=== PATIENT | male | born 1960 | race Caucasian/White ===

== ENCOUNTER → 2017-01-31 | Outpatient (CLI) | payer OTHER ==
[~2017-01-31] MED LIST: AMIT25TA PO; ASPI-496 PO; CHOL20002 PO; FOLI0.4T2 PO; FURO-92 PO; FURO-93 PO; FURO40TA6 PO; LACT10SO28 PO; LACT10SO5 PO; MAGN64TA9 PO; MILK500C PO; MINO75CA PO; MORP15TA3 PO; ONDA4TAB10 PO; OXYC5TAB3 PO; POTA20TA6 PO; PROP20TA PO; RIFA550T PO; TAMS-11 PO; VITA400C40 PO; VITA400C42 PO; ZINC220C5 PO; ZINC220T PO
== END | disposition home or self-care (01) ==
LOC: CFH 08:17
PROVIDERS: ATTEND Family Medicine
DX: Z13.820 Encounter for screening for osteoporosis (principal); M81.0 Age-related osteoporosis without current pathological fracture
CPT/HCPCS: 77080

== ENCOUNTER 2017-02-21 06:10 | Day surgery (SDC) | payer OTHER ==
[~2017-02-21] VITALS: Ht 182.9 cm; Wt 78.0 kg
[2017-02-21] MEDS ORDERED: POTA10TA11 PO (07:14)
[2017-02-21] MEDS ORDERED: LACT10SO28 PO (07:14)
[2017-02-21] MEDS ORDERED: AMIT10TA PO (07:14)
[2017-02-21] MEDS ORDERED: TAMS-11 PO (07:14)
[2017-02-21 07:15] VITALS: BP 132/87
[2017-02-21] MEDS ORDERED: OXYCODONE PO (07:34)
[2017-02-21] MEDS ORDERED: ONDA4TAB10 PO (07:37)
[2017-02-21] MEDS ORDERED: RISE35TA3 PO (07:37)
[2017-02-21] MEDS ORDERED: LIDOCAINE 1%, 20ML ONE (09:56)
[2017-02-21] MEDS ORDERED: MIDAZOLAM 1 MG/ML, 5ML ONE (09:57)
[2017-02-21] MEDS ORDERED: NALOXONE 1 MG/ML, 2ML ONE (09:58)
[2017-02-21] MEDS ORDERED: FENTANYL PF 100 MCG/2ML ONE (09:58)
[2017-02-21] MEDS ORDERED: FLUMAZENIL 0.1 MG/1 ML, 5ML ONE (09:58)
[2017-02-21] MEDS ORDERED: VISIPAQUE 270 MG/ML, 50ML BOTTLE ONE (11:10)
== END 2017-02-21 14:40 | disposition home or self-care (01) ==
LOC: OUT 06:10
PROVIDERS: ATTEND Internal Medicine
DX: K74.60 Unspecified cirrhosis of liver (principal); K76.6 Portal hypertension; K75.9 Inflammatory liver disease, unspecified; Z87.891 Personal history of nicotine dependence
CPT/HCPCS: 36011; 36415; 37200; 75970; 76937; 85610; 88307; 88313; C1769; C1894; J2250; J3010; J3490; Q9966; 99156; 99157; J2310

== ENCOUNTER 2018-09-09 22:02 | Emergency (ER) | payer OTHER ==
[~2018-09-09 22:02] MED LIST changes: +AMIT10TA PO; -CHOL20002 PO; +CHOL200052 PO; -MAGN64TA9 PO; +MAGNESIUM DR64 MG PO; +OXYCODONE PO; +POTA10TA11 PO; -RIFA550T PO; +RIFA550T4 PO; +RISE35TA3 PO; -VITA400C40 PO; +VITA400C43 PO
[2018-09-09] MEDS ORDERED: PROMETHAZINE 25 MG/ML, 1ML IM ONE (22:30)
[2018-09-09] MEDS ORDERED: SODIUM CHLORIDE 0.9% 1,000ML IVBOLUS ONE (22:30)
[2018-09-09] MEDS ORDERED: SODIUM CHLORIDE FLUSH 10ML SYR IVF ONE (22:30)
[2018-09-09] MEDS ORDERED: ONDANSETRON 2MG/ML, 2ML IVPush ONE (22:30)
[2018-09-09] MEDS ORDERED: ONDANSETRON 2MG/ML, 2ML ONE (22:33)
[2018-09-09] MEDS ORDERED: MORPHINE SULFATE 4 MG/ML, 1ML ONE ×2 (22:33→23:14)
[2018-09-09] MEDS ORDERED: PROMETHAZINE 25 MG/ML, 1ML ONE (22:33)
[2018-09-09] MEDS: MORPHINE SULFATE 4 MG/ML, 1ML IVPush PRN ×2 (22:39→23:18)
[2018-09-09 22:44] LABS: BASOPHILS # (AUTO) 0.03 x10^3/uL (0-0.1); BASOPHILS % (AUTO) 0 % (0-1); EOSINOPHILS # (AUTO) 0.18 x10^3/uL (0-0.4); EOSINOPHILS % (AUTO) 2 % (1-7); LYMPHOCYTES # (AUTO) 1.53 x10^3/uL (1-3.4); LYMPHOCYTES % (AUTO) 19 % (22-44); MD NO; MEAN CORPUSCULAR HEMOGLOBIN 33.8 pg (27.5-34.5); MEAN CORPUSCULAR HGB CONC 33.9 g/dL (33.2-36.2); MEAN CORPUSCULAR VOLUME 99.8 fL (81-97); MEAN PLATELET VOLUME 9.1 fL (7.4-10.4); MONOCYTES # (AUTO) 0.54 x10^3/uL (0.2-0.8); MONOCYTES % (AUTO) 7 % (2-9); NEUTROPHILS # (AUTO) 5.81 x10^3/uL (1.8-6.8); NEUTROPHILS % (AUTO) 72 % (42-75); PLATELET COUNT 116 x10^3/uL (130-400); RED BLOOD COUNT 3.61 x10^6/uL (4.38-5.82); RED CELL DISTRIBUTION WIDTH 15.9 % (9.4-14.8)
[2018-09-09 22:54] LABS: ALANINE AMINOTRANSFERASE 26 U/L (12-78); ALBUMIN 2.7 g/dL (3.4-5.0); ANION GAP 13 mmol/L (5-15); CALCIUM 9.1 mg/dL (8.5-10.1); CHLORIDE 105 mmol/L (98-107); CREATININE 1.47 mg/dL (0.7-1.3)
[2018-09-09 22:59] LABS: ALKALINE PHOSPHATASE 295 U/L (45-117); BILIRUBIN,TOTAL 1.2 mg/dL (0.2-1.0); TOTAL PROTEIN 8.6 g/dL (6.4-8.2); TROPONIN I < 0.015 ng/mL (0.000-0.045)
[2018-09-10] MEDS ORDERED: DIPHENHYDRAMINE 25 MG CAPSULE PO ONE
[2018-09-10] MEDS ORDERED: HYDROcodone/APAP 5/325 TABLET PO ONE
[2018-09-10] MEDS ORDERED: ZOLPIDEM 10MG TABLET PO PRN
[2018-09-10] MEDS ORDERED: HYDROcodone/APAP 5/325 TABLET ONE (00:11)
[2018-09-10] MEDS ORDERED: DIPHENHYDRAMINE 25 MG CAPSULE ONE (00:11)
[2018-09-10] MEDS ORDERED: ZOLPIDEM 5MG TABLET ONE ×2 (00:11→00:21)
[2018-09-10] MEDS ORDERED: POTASSIUM CHLORIDE 20 MEQ TAB.ER.PRT PO ONE (00:30)
[2018-09-10] MEDS ORDERED: POTASSIUM CHLORIDE 20 MEQ TAB.ER.PRT ONE (00:32)
[2018-09-10 00:38] VITALS: BP 131/74
== END 2018-09-10 00:48 | disposition home or self-care (01) ==
LOC: ED 09-10 00:38
DX: K70.30 Alcoholic cirrhosis of liver without ascites (principal); F51.01 Primary insomnia; R91.8 Other nonspecific abnormal finding of lung field; R93.5 Abnormal findings on diagnostic imaging of other abdominal regions, including retroperitoneum; R11.10 Vomiting, unspecified; I10 Essential (primary) hypertension; Z88.6 Allergy status to analgesic agent; Z88.5 Allergy status to narcotic agent
CPT/HCPCS: 36415; 71045; 74177; 80053; 83690; 84484; 85025; 93005; 96361; 96372; 96374; 96375; 96376; 99285; J2405; J2550; J7030; Q0163

== ENCOUNTER 2019-10-17 13:56 | Outpatient (CLI) | payer MEDICARE, OTHER ==
[~2019-10-17 13:56] MED LIST changes: +LACT10SO24 PO; -LACT10SO5 PO; +MORP-29 PO; -MORP15TA3 PO; +RISE35TA PO; -RISE35TA3 PO; -ZINC220T PO; +ZINC220T3 PO
== END 2019-10-17 23:59 | disposition home or self-care (01) ==
LOC: CARD 13:56
PROVIDERS: ATTEND Family Medicine
DX: J44.9 Chronic obstructive pulmonary disease, unspecified (principal)
CPT/HCPCS: 94060; 94726; 94729

== ENCOUNTER 2020-05-26 07:00 | Emergency (ER) | payer MEDICARE ==
[~2020-05-26] VITALS: Ht 180.3 cm; Wt 68.0 kg
[~2020-05-26 07:00] MED LIST changes: +VITA-74 PO; -VITA400C42 PO; -ZINC220C5 PO; +ZINC220C7 PO
[2020-05-26] MEDS ORDERED: OMNIPAQUE 350 MG/ML, 100ML BOTTLE ONE (07:25)
[2020-05-26] MEDS ORDERED: ONDANSETRON 2MG/ML, 2ML IVPush ONE (07:30)
[2020-05-26] MEDS ORDERED: SODIUM CHLORIDE FLUSH 10ML SYR IVF ONE (07:30)
--- NOTE | 2020-05-26 07:32 | NUR ---
FIRST CONTACT WITH PT. RIGHT KIDNEY IS IN BAD SHAPE X 2 DAYS, STATED UNABLE TO LAY ON IT, DENIED ANY URINARY SYMPTOMS. RIGHT KNEE CAP IS SHATTERED 2 DAYS AGO. PT STATED WAS AT A HOUSE CONSTITUTION PARTY AND WAS TACKLED AND THROWN OUT, STATED HE THINKS THE INJURY HAPPENED THEN. PT DENIES ANY OTHER SX. PT'S AOX4. RESPS EVEN AND UNLABORED. BP/SPO2 MONITORS IN PLACE. CALL LIGHT WITHIN REACH.
[2020-05-26] MEDS ORDERED: MORPHINE SULFATE 4 MG/ML, 1ML ONE ×2 (07:36→09:59)
[2020-05-26] MEDS ORDERED: ONDANSETRON 2MG/ML, 2ML ONE (07:36)
--- NOTE | 2020-05-26 07:39 | NUR ---
PT TO XRAY AT THIS TIME.
--- NOTE | 2020-05-26 07:46 | NUR ---
Jose delcid in ED - 05/26/20 at 0747 by ADRIANNA PT IN XRAY AT THIS TIME.
--- NOTE | 2020-05-26 08:25 | NUR ---
PT BACK TO ROOM FROM XRAY AT THIS TIME.
[2020-05-26] MEDS: MORPHINE SULFATE 4 MG/ML, 1ML IVPush PRN ×2 (08:32→10:01)
--- NOTE | 2020-05-26 08:38 | NUR ---
piv est on l ac with no complications. pt medicated per emar. pt tolerated well.
[2020-05-26 08:57] LABS: ALANINE AMINOTRANSFERASE 52 U/L (12-78); ALBUMIN 3.1 g/dL (3.4-5.0); ANION GAP 7 mmol/L (5-15); CALCIUM 9.7 mg/dL (8.5-10.1); CHLORIDE 113 mmol/L (98-107); CREATININE 1.24 mg/dL (0.7-1.3)
[2020-05-26 09:00] LABS: ALKALINE PHOSPHATASE 341 U/L (45-117); TOTAL PROTEIN 8.1 g/dL (6.4-8.2)
--- NOTE | 2020-05-26 09:20 | NUR ---
PT IN CT AT THIS TIME.
[2020-05-26 09:22] LABS: BASOPHILS # (AUTO) 0.05 x10^3/uL (0-0.1); BASOPHILS % (AUTO) 1 % (0-1); EOSINOPHILS # (AUTO) 0.12 x10^3/uL (0-0.4); EOSINOPHILS % (AUTO) 2 % (1-7); LYMPHOCYTES # (AUTO) 0.85 x10^3/uL (1-3.4); LYMPHOCYTES % (AUTO) 13 % (22-44); MD SCAN; MEAN CORPUSCULAR HEMOGLOBIN 34.6 pg (27.5-34.5); MEAN CORPUSCULAR HGB CONC 33.1 g/dL (33.2-36.2); MEAN PLATELET VOLUME 9.3 fL (7.4-10.4); MONOCYTES # (AUTO) 0.58 x10^3/uL (0.2-0.8); MONOCYTES % (AUTO) 9 % (2-9); NEUTROPHILS # (AUTO) 4.84 x10^3/uL (1.8-6.8); NEUTROPHILS % (AUTO) 75 % (42-75); PLATELET COUNT 83 x10^3/uL (130-400); RED BLOOD COUNT 4.08 x10^6/uL (4.38-5.82); RED CELL DISTRIBUTION WIDTH 15.1 % (9.4-14.8)
--- NOTE | 2020-05-26 09:32 | NUR ---
PT RESTING IN [facility]. PT'S AOX4. RESPS EVEN AND UNLABORED. BP/SPO2 MONITORS IN PLACE. CALL LIGHT WITHIN REACH. PT'S PAIN LEVEL IS 8/10 AT THIS TIME. PT STATED"I FEEL A LITTLE BIT BETTER."
--- NOTE | 2020-05-26 10:03 | NUR ---
PT MEDICATED PER EMAR FOR PAIN. PT TOLERATED WELL.
[2020-05-26 10:32] VITALS: BP 140/81
--- NOTE | 2020-05-26 10:33 | NUR ---
Patient given discharge instructions and they have confirmed that they understand the instructions.
== END 2020-05-26 10:34 | disposition home or self-care (01) ==
LOC: ED 07:34
DX: S80.01XA Contusion of right knee, initial encounter (principal); S20.211A Contusion of right front wall of thorax, initial encounter; I10 Essential (primary) hypertension; Z88.6 Allergy status to analgesic agent; Y92.009 Unspecified place in unspecified non-institutional (private) residence as the place of occurrence of the external cause; Y04.8XXA Assault by other bodily force, initial encounter; Y99.8 Other external cause status; Y93.89 Activity, other specified
CPT/HCPCS: 36415; 71101; 73564; 74177; 80053; 80307; 83690; 85025; 96374; 96375; 96376; 99285; J2270; J2405; Q9967

== ENCOUNTER 2021-05-14 06:15 | Emergency (ER) | payer MEDICARE ==
[~2021-05-14] VITALS: Ht 180.3 cm; Wt 67.4 kg
[~2021-05-14 06:15] MED LIST changes: -FOLI0.4T2 PO; +FOLI0.4T5 PO; -OXYC5TAB3 PO; +OXYC5TAB98 PO
--- NOTE | 2021-05-14 06:37 | NUR ---
PT PRESENTS TO THE ED WITH HEADACHE AND N/V. PT ON GURNEY AND ACTIVILY VOMITTING. PT IN GOWN, AND PLACED ON CONTINUOUS MONITORING. ERP AT BEDSIDE
[2021-05-14] MEDS ORDERED: METOCLOPRAMIDE 5 MG/ML, 2ML ONE (06:46)
[2021-05-14] MEDS ORDERED: DIPHENHYDRAMINE 50 MG/ML, 1ML ONE (06:46)
[2021-05-14] MEDS ORDERED: SODIUM CHLORIDE 0.9% 1,000ML IVBOLUS ONE (07:00)
[2021-05-14] MEDS ORDERED: DIPHENHYDRAMINE 50 MG/ML, 1ML IVPush ONE (07:00)
[2021-05-14] MEDS ORDERED: METOCLOPRAMIDE 5 MG/ML, 2ML IVPush ONE (07:00)
[2021-05-14] MEDS ORDERED: ATOR40TA78 PO (08:53)
[2021-05-14] MEDS ORDERED: KETOROLAC 30 MG/1 ML IVPush ONE (09:00)
[2021-05-14] MEDS ORDERED: MAGNESIUM SULFATE PMX 2GM/50ML 50 ML IV ONE (09:00)
[2021-05-14] MEDS ORDERED: DEXAMETHASONE 4 MG/ML, 1ML IVPush ONE (09:00)
[2021-05-14] MEDS ORDERED: KETOROLAC 30 MG/1 ML ONE (09:01)
[2021-05-14] MEDS ORDERED: MAGNESIUM SULFATE PMX 2GM/50ML 50 ML ONE (09:02)
[2021-05-14] MEDS ORDERED: DEXAMETHASONE 4 MG/ML, 1ML ONE (09:02)
--- NOTE | 2021-05-14 09:05 | NUR ---
PT CHART WAS REVIEWED. PT REPORT RECEIVED FROM NAHUM CHAVIS. PT CARE ASSUMED. PT RESTING ON GURNEY, IV 20G LAC. NS NOT INFUSING AT THIS TIME; LINE NOT CONNECTED; 750ML INFUSED. PT A&OX4, RESP EVEN & UNLABORED, SPEECH CLEAR, SKIN WNL. PT STATES HUNTER PAIN STARTED 1999 LAST NOC. TOOK ASA 324MG AT 0000 TODAY. PAIN CURRENTLY 8/10. REPORTS LT EYE PAIN. WEARS GLASSES DAILY. DENIES NAUSEA.
--- NOTE | 2021-05-14 09:16 | NUR ---
DEXAMETHASONE AND TORADOL GIVEN PER EMAR. IV SITE PATENT
--- NOTE | 2021-05-14 09:25 | NUR ---
MAG SULFATE 2G HUNG; INFUSING VIA PUMP AT 50ML/HR. SIDE RAIL UP X1, CALL LIGHT W/IN REACH. NO ADDITIONAL NEEDS AT THIS TIME.
--- NOTE | 2021-05-14 10:34 | NUR ---
MAG SULFATE INFUSED. PT RESTING RT LATERAL POSITION. REPORTS NO HUNTER PAIN AT THIS TIME.
[2021-05-14 10:36] VITALS: BP 132/74
== END 2021-05-14 11:05 | disposition home or self-care (01) ==
LOC: ED 07:46
DX: R51.9 Headache, unspecified (principal); D16.9 Benign neoplasm of bone and articular cartilage, unspecified; R11.2 Nausea with vomiting, unspecified; R42 Dizziness and giddiness; I10 Essential (primary) hypertension; F17.290 Nicotine dependence, other tobacco product, uncomplicated; Z88.6 Allergy status to analgesic agent; Z88.5 Allergy status to narcotic agent
CPT/HCPCS: 70450; 93005; 96361; 96365; 96375; 99284; J1100; J1200; J1885; J2765; J3475; J7030